=== PATIENT | female | born 1945 | race Caucasian/White ===

== ENCOUNTER 2020-11-20 09:03 | Outpatient (CLI) | payer MEDICARE, OTHER, SELFPAY ==
--- NOTE | ~2020-11-20 | MM_ITS ---
EXAMINATION: MM screening hubert BI w ena HISTORY: Screening mammogram TECHNIQUE: Craniocaudal and mediolateral oblique 3-D tomosynthesis images were obtained and synthetic 2-D images were generated. CAD analysis was submitted and interpreted. COMPARISON: 11/07/2019, 11/05/2018, 11/03/2017 bilateral digital screening mammogram examinations BREAST PARENCHYMAL COMPOSITION: There are scattered areas of fibroglandular density. FINDINGS: Scattered bilateral benign calcifications. There is no evidence of suspicious mass, calcifi cation, or architectural distortion to suggest malignancy in either breast. There has been no suspici ous interval change. IMPRESSION: 1. No mammographic evidence of malignancy. 2. Recommend routine screening mammography in one year. BI-RADS Category 1: Negative Reviewed, dictated and finalized at location A. LATORY AGENCY DIRECTOR
== END 2020-11-20 09:04 | disposition home or self-care (01) ==
PROVIDERS: PCP Internal Medicine; Visit Provider Internal Medicine
DX: Z12.31 Encounter for screening mammogram for malignant neoplasm of breast (principal)
CPT/HCPCS: 77063; 77067

== ENCOUNTER 2021-10-01 09:04 | Outpatient (CLI) | payer MEDICARE, OTHER, SELFPAY ==
--- NOTE | ~2021-10-01 | DEXA_ITS ---
Bone Density Report Name: DIANA CORDOBA Age: 76 Sex: Female Ethnicity: White Date of : 1945 Indication: postmenopausal; height loss; prior fracture; hysterectomy; Referring Provider: WILFRED, CARSON Schilling Study: Bone densitometry was performed. Exam Date: October 01, 2021 Accession number: [id number] Bone Density: Region BMD T-score Z-score Classification AP Spine (L1-L4) 0.957 -0.8 1.5 Normal Femoral Neck (Left) 0.759 -0.8 1.2 Normal Total Hip (Left) 0.867 -0.6 1.1 Normal Total Hip Bilateral Avg 0.885 -0.5 1.3 Normal Femoral Neck (Right) 0.787 -0.6 1.5 Normal Total Hip (Right) 0.901 -0.3 1.4 Normal World Health Organization criteria for BMD impression classify patients as: Normal (T-score at or above -1.0), Osteopenia (T-score between -1.0 and -2.5), or Osteoporosis (T-score at or below -2.5). 10-year Fracture Risk: FRAX not reported because: All T-scores for Spine Total, Hip Total, Femoral Neck at or above -1.0 Previous Exams: Region Exam Age BMD T-score BMD Change BMD Change Date g/cm2 vs Baseline vs Previous AP Spine(L1-L4) 10/01/2021 76 0.957 -0.8 0.012(1.3%) 0.012(1.3%) 11/05/2018 73 0.945 -0.9 Total Hip(Left) 10/01/2021 76 0.867 -0.6 -0.121(-12.2%) -0.121(-12.2%) 11/05/2018 73 0.988 0.4 Total Hip(Right) 10/01/2021 76 0.901 -0.3 -0.077(-7.8%)* -0.077(-7.8%)* 11/05/2018 73 0.978 0.3 *Denotes significance at 95% confidence level, LSC for AP Spine = 0.022 g/cm2, LSC for Total Hip = 0.027 g/cm2 Clinical Information Provided by Patient: Has had a low trauma fracture Has used the following medications: Vitamin D, Calcium Has the following medical conditions: Hysterectomy Patient maximum height was 61.5 Menopause Age: 48 Does not regularly consume dairy products Onset of menses at age 12 Number of children 3 Impression: The patient has normal bone mass. The patient has risk factors, including: previous fracture. The BMD for the Total Hip(Left) decreased, changing by -12.2% since the last DXA exam. The BMD for the Total Hip(Right) decreased, changing by -7.8% since the last DXA exam. Discussion: BONE DENSITY IS ABOVE THE MINIMUM DESIRABLE LEVEL AT ALL SKELETAL SITES TESTED. This patient?s bone mineral density is above the minimum desirable level (T-score -1.0 or better) at all sites measured. The patient should follow a healthful lifestyle (good nutrition with adequate calcium and vitamin D, and appropriate weigh
== END 2021-10-01 09:05 | disposition home or self-care (01) ==
LOC: ANHIMG 09:08
PROVIDERS: PCP Internal Medicine; Visit Provider Internal Medicine
DX: Z78.0 Asymptomatic menopausal state (principal)
CPT/HCPCS: 77080

== ENCOUNTER 2021-12-25 08:28 | Outpatient (CLI) | payer MEDICARE, OTHER, SELFPAY ==
--- NOTE | ~2021-12-25 | MM_ITS ---
EXAMINATION: MM screening hubert BI w ena HISTORY: Screening mammogram, family history of breast cancer in her mother. TECHNIQUE: Craniocaudal and mediolateral oblique 3-D tomosynthesis images were obtained and synthetic 2-D images were generated. CAD analysis was submitted and interpreted. COMPARISON: 11/20/2020, 11/07/2019, 11/05/2018 BREAST PARENCHYMAL COMPOSITION: There are scattered areas of fibroglandular density. FINDINGS: There is no suspicious mass, calcification, or architectural distortion to suggest malignan cy in either breast. There has been no suspicious interval change. IMPRESSION: 1. No mammographic evidence of malignancy. 2. Recommend routine screening mammography in one year. BI-RADS Category 1: Negative Reviewed, dictated and finalized at location A.
== END 2021-12-25 08:29 | disposition home or self-care (01) ==
LOC: ANHIMG 08:29
PROVIDERS: PCP Internal Medicine; Visit Provider Internal Medicine
DX: Z12.31 Encounter for screening mammogram for malignant neoplasm of breast (principal)
CPT/HCPCS: 77063; 77067

== ENCOUNTER 2023-02-24 08:07 | Outpatient (CLI) | payer MEDICARE, OTHER, SELFPAY ==
--- NOTE | ~2023-02-24 | MM_ITS ---
EXAMINATION: MM screening hubert BI w ena HISTORY: Screening mammogram, family history of breast cancer in her mother. TECHNIQUE: Craniocaudal and mediolateral oblique 3-D tomosynthesis images were obtained and synthetic 2-D images were generated. CAD analysis was submitted and interpreted. COMPARISON: 12/25/2021, 11/20/2020, 11/07/2019 BREAST PARENCHYMAL COMPOSITION: There are scattered areas of fibroglandular density. FINDINGS: Chronic, mild right nipple retraction is stable. No suspicious mass, calcification, or arch itectural distortion are identified in either breast to suggest malignancy. There has been no suspici ous interval change. IMPRESSION: 1. No mammographic evidence of malignancy. 2. Recommend routine screening mammography in one year. BI-RADS Category 2: Benign finding(s). Reviewed, dictated and finalized at location A.
== END 2023-02-24 08:08 | disposition home or self-care (01) ==
PROVIDERS: PCP Internal Medicine; Visit Provider Internal Medicine
DX: Z12.31 Encounter for screening mammogram for malignant neoplasm of breast (principal)
CPT/HCPCS: 77063; 77067

== ENCOUNTER 2024-04-05 10:16 | Outpatient (CLI) | payer MEDICARE, OTHER, SELFPAY ==
--- NOTE | ~2024-04-05 | MM_ITS ---
EXAMINATION: MM screening hubert BI w ena HISTORY: Screening mammogram, family history of breast cancer in her mother. TECHNIQUE: Craniocaudal and mediolateral oblique 3-D tomosynthesis images were obtained and synthetic 2-D images were generated. CAD analysis was submitted and interpreted. COMPARISON: 02/24/2023, 12/25/2021, 11/20/2020 BREAST PARENCHYMAL COMPOSITION:Not Dense. There are scattered areas of fibroglandular density. FINDINGS: No suspicious mass, calcification, or architectural distortion are identified in either steff ast to suggest malignancy. There has been no suspicious interval change. IMPRESSION: No mammographic evidence of malignancy. Recommend routine screening mammography in one year. BI-RADS Category 1: Negative Reviewed, dictated and finalized at location .
== END 2024-04-05 10:17 | disposition home or self-care (01) ==
LOC: ANHIMG 10:18
PROVIDERS: PCP Internal Medicine; Visit Provider Internal Medicine
DX: Z12.31 Encounter for screening mammogram for malignant neoplasm of breast (principal)
CPT/HCPCS: 77063; 77067

== ENCOUNTER 2025-04-10 13:12 | Outpatient (CLI) | payer MEDICARE, OTHER, SELFPAY ==
--- NOTE | ~2025-04-10 | MM_ITS ---
EXAMINATION: MM screening [facility] BI w ena HISTORY: Screening mammogram TECHNIQUE: Craniocaudal and mediolateral oblique 3-D tomosynthesis images were obtained and synthetic 2-D images were generated. CAD analysis was submitted and interpreted. COMPARISON: 04/05/2024, 02/24/2023, 12/25/2021 BREAST PARENCHYMAL COMPOSITION:Not Dense. There are scattered areas of fibroglandular density. FINDINGS: No suspicious mass, calcification, or architectural distortion are identified in either steff ast to suggest malignancy. There has been no suspicious interval change. IMPRESSION: No mammographic evidence of malignancy. Recommend routine screening mammography in one year. BI-RADS Category 1: Negative Reviewed, dictated and finalized at location .
--- NOTE | ~2025-04-10 | DEXA_ITS ---
Bone Density Report Name: DIANA CORDOBA Age: 79 Sex: Female Ethnicity: White Date of : 1945 Indication: postmenopausal; screening for osteoporosis; height loss; hysterectomy; Referring Provider: WILFRED, CARSON Schilling Study: Bone densitometry was performed. Exam Date: April 10, 2025 Accession number: [id number] Bone Density: Region BMD T-score Z-score Classification AP Spine(L1-L4) 0.895 -1.4 1.2 Osteopenia Femoral Neck (Left) 0.693 -1.4 0.8 Osteopenia Total Hip (Left) 0.846 -0.8 1.2 Normal Femoral Neck (Right) 0.680 -1.5 0.7 Osteopenia Total Hip (Right) 0.804 -1.1 0.8 Osteopenia Total Hip Mean 0.825 -1.0 1.0 Normal World Health Organization criteria for BMD impression classify patients as: Normal (T-score at or above -1.0), Osteopenia (T-score between -1.0 and -2.5), or Osteoporosis (T-score at or below -2.5). 10-year Fracture Risk(1): Major Osteoporotic Fracture 12% Hip Fracture 2.7% Reported Risk Factors: [place] (), Neck BMD=0.680, BMI=29.5 (1) FRAX(R) Version 3.08. Fracture probability calculated for an untreated patient. Fracture probability may be lower if the patient has received treatment. Previous Exams: Region Exam Age BMD T-score BMD Change BMD Change Date g/cm2 vs Baseline vs Previous AP Spine (L1-L4) 04/10/2025 79 0.895 -1.4 -0.050 (-5.3%) -0.062 (-6.5%) 10/01/2021 76 0.957 -0.8 0.012 (1.3%) 0.012 (1.3%) 11/05/2018 73 0.945 -0.9 Total Hip(Left) 04/10/2025 79 0.846 -0.8 -0.142 (-14.3% -0.021 (-2.4%) 10/01/2021 76 0.867 -0.6 -0.121 (-12.2% -0.121 (-12.2% 11/05/2018 73 0.988 0.4 Total Hip(Right) 04/10/2025 79 0.804 -1.1 -0.175 (-17.8% -0.098 (-10.9% 10/01/2021 76 0.901 -0.3 -0.077 (-7.8%) -0.077 (-7.8%) 11/05/2018 73 0.978 0.3 *Denotes significance at 95% confidence level, LSC for AP Spine = 0.022 g/cm2, LSC for Total Hip = 0.027 g/cm2 Clinical Information Provided by Patient: Has used the following medications: Vitamin D Has the following medical conditions: Hysterectomy Patient maximum height was 61.0 Menopause Age: 48 No regular weight bearing exercise Does not regularly consume dairy products Onset of menses at age 12 Number of children 3 Impression: The patient has low bone mass, based on the Right Femoral Neck T-score. The patient has an estimated ten-year risk of hip fracture of 2.7% and an estimated ten-year risk of major fracture of 12%, based on the WHO FRAX algorithm. The BMD for the AP Spine (L1-L4) decreased, changing by -6.5% since the last DXA exam. The BMD for the Total Hip(Right) decreased, changing by -10.9% since the last DXA exam. Discussion: BONE DENSITY IS LOW AT ONE OR MORE SKELETAL SITES. This patient's lowest T-score is low at one or more skeletal sites. It meets the World Health Organization's (WHO) criteria for ?low bone mass? (T-score between -1.0 and -2.5). The patient's 10-year risk of fracture as calculated by FRAX is less than the threshold where pharmacological therapy is recommended by the National Osteoporosis Foundation (NOF). However, all treatment decisions require clinical judgment and consideration of individual patient factors, including patient preferences, comorbidities, previous drug use, risk factors not captured in the FRAX model (e.g., frailty, falls, vitamin D deficiency, increased bone turnover, interval significant decline in bone density) and possible under or overestimation of fracture risk by FRAX. The patient should follow a healthful lifestyle (good nutrition with adequate calcium and vitamin D, and appropriate weight-bearing exercise). Follow-Up: Consider repeating this study in 2 years to reassess this patient's status, or sooner if there is some new clinical indication. Reported by: JEANNE on 04/10/2025 1:52:00 PM. Reviewed, dictated and finalized at location A.
--- OUTSIDE RECORDS SUMMARY | 2025-04-10 13:37 | XMS_ITS ---
Author Organization [facility] Address [address] [place] [address] Care Team Providers Care Recreational Sports Director Name Role Phone Osvaldo José Unavailable [phone] Encounters Encounter Location Date Provider Diagnosis [facility] [place] [facility] [address] [place] [address] 03/24/2025 José Riley Plan Of Treatment Next Appt Details Provider Name:José Riley , 06/02/2025 01:30:00 PM, [address] [facility] [address], [place], [place], [facility], Progress Notes * ASHLEY CORDOBAOB:1945 (79 yo F)Acc No.[id number]:03/24/2025 Progress Notes Patient: DIANA WALDRON Provider: Desiree MCCRAY MD, Xavier.Regi.C.P, F.A.S.N. :1945 A ge:79 Y S ex:Female Date:03/24/2025 Address:[address] [place] [address] Subjective: * Chief Complaints: * * Medical History: Objective: * Vitals: Assessment: Plan: * Treatment: * Billing Information: * Visit Code: * Procedure Codes: * Electronic signature of Thea iRley MD on 04/10/2025 at 01:36 PM CDT Sign off status: Pending * Provider: Desiree MCCRAY MD, F.Regi.C.P, F.A.S.N. Date: 03/24/2025 Generated for Printing/Faxing/eTransmitting on: 04/10/2025 01:36 PM CDT
--- OUTSIDE RECORDS SUMMARY | 2025-04-10 13:37 | XMS_ITS | Patient Health Record ---
Author Organization [facility] Address [address] [place] [address] Care Team Providers Care Lead Loader Name Role Phone José Riley Unavailable [phone] Reason For Referral No Information Medications Medication SIG (Take, Route, Frequency, Duration) Notes Start Date End Date Status Losartan Potassium 25 MG 1 tablet Orally Once a day; Duration: 90 day(s) 12/09/2021 Active Ergocalciferol 1.25 MG (26386 UT) 1 capsule Orally Once a week; Duration: 90 days 03/31/2025 04/05/2026 Active Paricalcitol 1 MCG 1 capsule Orally fan ly; Duration: 90 days 04/10/2025 04/05/2026 Active Zemplar 1 MCG 1 capsule Orally onc e a day; Duration: 90 day(s) 03/31/2025 12/26/2025 Active Losartan Potassium 25 MG 1 tablet Orally Once a day; Duration: 90 day(s) 05/29/2023 Active Problems Problem Type SNOMED Code ICD Code Onset Dates Problem Status W/U Status Risk Notes Problem Anemia (343029788) Anemia, unspecified (D64.9) Active confirmed Problem Hypothyroidism (51134342) Hypothyroidism, unspecified (E03.9) Active confirmed Problem Secondary hyperparathyroidism (93536844) Secondary hyperparathyroi dism, not elsewhere classified (E21.1) Active confirmed Problem Essential hypertension (98281831) Essential (primary) hypertension (I10) Active confirmed uncontrolled Problem Fatty liver (753379881) Fatty (change of) liver, not elsewhere classified (K76.0) Active confirmed Problem Renal osteodystrophy (83886351) Renal osteodystrophy (N25.0) Active confirmed Problem 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 Problem 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, 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) Active confirmed Problem Proteinuria (68482996) Proteinuria, unspecified (R80.9) Active confirmed Problem Chronic kidney disease stage 3 (disorder) (401930281) Chronic kidney disease, stage 3 unspecified (N18.30) Active confirmed Problem Chronic kidney disease stage 3A (disorder) (461217033) Chronic kidney disease, stage 3a (N18.31) Active confirmed Encounters Encounter Location Date Provider Diagnosis [facility] [address] [place] [address] 06/24/2024 José Riley Chronic kidney disea se, stage 3 unspecified N18.30 ; Fatty (change of) liver, not elsewhere classified K76.0 ; Renal osteodystrophy N25.0 ; Essential (primary) hypertension I10 ; Secondary hyperparathyroidism, not elsewhere classified E21.1 and Cyst of kidney, acquired N28.1 [facility] [address] [place] [address] 08/26/2024 José Riley Chronic kidney disea se, stage 3a N18.31 ; Essential (primary) hypertension I10 ; Renal osteodystrophy N25.0 ; Secondary hyperparathyroidism, not elsewhere classified E21.1 ; Cyst of kidney, acquired N28.1 ; Chronic kidney disease, stage 3 unspecified N18.30 and Fatty (change of) liver, not elsewhere classified K76.0 [facility] [address] [place] [address] 10/21/2024 José Riley Chronic kidney disea se, stage 3a N18.31 ; Renal osteodystrophy N25.0 ; Secondary hyperparathyroidism, not elsewhere classified E21.1 ; Proteinuria, unspecified R80.9 ; 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 and Anemia, unspecified D64.9 [facility] [address] [place] [address] 02/17/2025 José Riley Chronic kidney disea se, stage 3a N18.31 ; Essential (primary) hypertension I10 ; Renal osteodystrophy N25.0 ; Secondary hyperparathyroidism, not elsewhere classified E21.1 ; Cyst of kidney, acquired N28.1 ; Chronic kidney disease, stage 3 unspecified N18.30 ; Fatty (change of) liver, not elsewhere classified K76.0 ; Proteinuria, unspecified R80.9 ; 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 ; Hypothyroidism, unspecified E03.9 ; Anemia, unspecified D64.9 and Abnormal radiologic findings on diagnostic imaging of unspecified kidney R93.429 [facility] [address] [place] [address] 03/31/2025 José Riley Chronic kidney disea se, stage 3a N18.31 ; Essential (primary) hypertension I10 ; Renal osteodystrophy N25.0 ; Secondary hyperparathyroidism, not elsewhere classified E21.1 ; Cyst of kidney, acquired N28.1 ; Fatty (change of) liver, not elsewhere classified K76.0 ; Proteinuria, unspecified R80.9 ; 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 ; Hypothyroidism, unspecified E03.9 and Anemia, unspecified D64.9 [facility] [place] [facility] [address] [place] [address] 10/21/2024 José Riley [facility] [place] [facility] [address] [place] [address] 01/31/2025 José Riley [facility] [place] [facility] [address] [place] [address] 02/17/2025 José Riley [facility] [address] [place] [address] 03/31/2025 José Riley [facility] [address] [place] [address] 03/31/2025 José [facility] [address] [place] [address] 04/10/2025 José Riley Assessments Encounter Date Diagnosis (ICD Code) Assessment Notes Treatment Notes Treatment Clinical Notes Section Notes 06/24/2024 Chronic kidney disease, stage 3 unspecified (ICD-10 - N18.30) 08/26/2024 Chronic kidney disease, stage 3a (ICD-10 - N18.31) 10/21/2024 Chronic kidney disease, stage 3a (ICD-10 - N18.31) 02/17/2025 Essential (primary) hypertension (ICD-10 - I10) uncontrolled 02/17/2025 Chronic kidney disease, stage 3a (ICD-10 - N18.31) 03/31/2025 Essential (primary) hypertension (ICD-10 - I10) uncontrolled 03/31/2025 Chronic kidney disease, stage 3a (ICD-10 - N18.31) 03/31/2025 Renal osteodystrophy (ICD-10 - N25.0) 02/17/2025 Renal osteodystrophy (ICD-10 - N25.0) 10/21/2024 Renal osteodystrophy (ICD-10 - N25.0) 08/26/2024 Essential (primary) hypertension (ICD-10 - I10) uncontrolled 06/24/2024 Fatty (change of) liver, not elsewhere classified (ICD-10 - K76.0) 06/24/2024 Renal osteodystrophy (ICD-10 - N25.0) 10/21/2024 Secondary hyperparathyroidis m, not elsewhere classified (ICD-10 - E21.1) 08/26/2024 Renal osteodystrophy (ICD-10 - N25.0) 02/17/2025 Secondary hyperparathyroidis m, not elsewhere classified (ICD-10 - E21.1) 03/31/2025 Secondary hyperparathyroidis m, not elsewhere classified (ICD-10 - E21.1) 03/31/2025 Cyst of kidney, acquired (ICD-10 - N28.1) 02/17/2025 Cyst of kidney, acquired (ICD-10 - N28.1) 10/21/2024 Proteinuria, unspecified (ICD-10 - R80.9) 06/24/2024 Essential (primary) hypertension (ICD-10 - I10) uncontrolled 08/26/2024 Secondary hyperparathyroidis m, not elsewhere classified (ICD-10 - E21.1) 06/24/2024 Secondary hyperparathyroidis m, not elsewhere classified (ICD-10 - E21.1) 10/21/2024 Nephrogenic diabetes insipidus (ICD-10 - N25.1) 08/26/2024 Cyst of kidney, acquired (ICD-10 - N28.1) 03/31/2025 Fatty (change of) liver, not elsewhere classified (ICD-10 - K76.0) 02/17/2025 Chronic kidney disease, stage 3 unspecified (ICD-10 - N18.30) 02/17/2025 Fatty (change of) liver, not elsewhere classified (ICD-10 - K76.0) 03/31/2025 Proteinuria, unspecified (ICD-10 - R80.9) 08/26/2024 Chronic kidney disease, stage 3 unspecified (ICD-10 - N18.30) 10/21/2024 Anemia, unspecified (ICD-10 - D64.9) 06/24/2024 Cyst of kidney, acquired (ICD-10 - N28.1) 08/26/2024 Fatty (change of) liver, not elsewhere classified (ICD-10 - K76.0) 03/31/2025 Nephrogenic diabetes insipidus (ICD-10 - N25.1) 02/17/2025 Proteinuria, unspecified (ICD-10 - R80.9) 03/31/2025 Hypothyroidism, unspecified (ICD-10 - E03.9) 02/17/2025 Nephrogenic diabetes insipidus (ICD-10 - N25.1) 02/17/2025 Hypothyroidism, unspecified (ICD-10 - E03.9) 03/31/2025 Anemia, unspecified (ICD-10 - D64.9) 02/17/2025 Anemia, unspecified (ICD-10 - D64.9) 02/17/2025 Abnormal radiologic findings on diagnostic imaging of unspecified kidney (ICD-10 - R93.429) Plan Of Treatment Next Appt Details Provider Name:José Riley , 06/02/2025 01:30:00 PM, [address], [facility] [address], [address],
--- OUTSIDE RECORDS SUMMARY | 2025-04-10 13:37 | XMS_ITS | Data Portability ---
Author Organization [place] [facility] [employer] Main Office Address [address] [place] [address] Assessment No assessment recorded. Plan of Treatment Reminders Order Date Submit Date Provider Last Modified By Organization Details Last Modified Time Details Appointments Any 15 2024 08:45A M Chris Mendoza MD Not available Not available Not available Lab T4, free, serum 2023 024 [facility] (Lab), [address] [place], [address], 01/25/2025 12:53:59 TSH, serum or plasma 2023 024 [email or web address] [facility] (Lab), [address] [place], [address], 01/27/2025 15:48:56 T3, free, serum or plasma 2023 024 [facility] (Lab), [address] [place], [address], 01/25/2025 13:45:09 lipid panel, serum 2023 024 [facility] (Lab), [address] [place], [address], 01/25/2025 12:44:41 Referral None recorded. Procedures None recorded. Surgeries None recorded. Imaging None recorded. Medication Orders dicyclomi ne 10 mg capsule 2023 024 [id number] Not available 03/24/2025 22:33:20 methimazo le 10 mg tablet 2023 024 [email or web address] [facility] [address], [place], [address], 02/01/2025 09:02:31 losartan 25 mg tablet 2023 024 [id number] [facility] [address], [place], [address], 02/01/2025 01:21:42 amlodipin e 10 mg tablet 2023 024 [id number] 49 [facility] [address], [place], [address], 02/01/2025 01:21:41 atorvasta tin 10 mg tablet 2023 024 [id number] 49 [facility] [address], [place], [address], 02/01/2025 01:21:42 escitalop fer 10 mg tablet 2023 024 [id number] 49 [facility] [address], [place], [address], 02/01/2025 01:21:42 Patient TargetsNo targets recorded. Patient Instructions Encounter Date Encounter Id Patient Instructions Last Modified By Organization Details Last Modified Time 02/18/2024 [id number] dementia rating scale-2* Not available 02/18/2024 13:02:14 alcohol misuse* Not available 02/18/2024 13:02:14 depression screening* Not available 02/18/2024 13:02:14 multi-dimensiona l health assessment questionnaire* [email or web address] Not available 02/18/2024 10:51:43 Personalized Hea lt Plan and Screening Recommendations Advance Directives - Do you have one? No Advance Directives - Do we have your advance directive on file in your health record? Primary Prevention/Interven tion (prevents or decreases the chance of common diseases from occurring) Smoking Risk: Non Smoker Alcohol Misuse Screening: Negative Weight: Overweight try to lose 10% of your body weight Physical activity: Need more exercise/physical activity Nutrition: Average Eat heart healthy diet Fall Risk (screened today): Low Vaccines Pneumococcal: Influenza: Recommended today, but you have declined Chronic Disease Risks Stroke: Intermediate Risk Active diagnosis, Continue current treatment plan Heart Attack: Intermediate Risk Active diagnosis, Continue current treatment plan Clogging of the Arteries: Intermediate Risk Active diagnosis, Continue current treatment plan Diabetes: Low Risk I have no recommendations Secondary Prevention/Interven tion (detects treatable diseases before they may cause symptoms, disability, or ) Breast Cancer Screening with mammogram: Recommended today Cervical/Uterine/Ov velia Cancer Screening: No screening necessary Osteoporosis Screening: Recommended today Date Screening Last Performed: Colon Cancer Screening: Colonoscopy due 2025 Date Screening Last Performed: _2020 Eye Disease Screening: Your next exam in: goes yearly Dementia Risk: Low I have no recommendations Depression Screening: Negative Active diagnosis, Continue current treatment plan [email or web address] Not available 02/18/2024 10:54:52 Reason for Referral None Reported. Results Created Date Observation Date Name Description Value Unit Range Abnormal Flag Note LastModifiedBy Organization Detail LastModifiedTime 10/16/19 24 10/16/2023 CBC W/O DIFFE RENTI AL white blood cells 6.3 x10'3 /uL 4.2-10 .8 Not Available [facility] (Lab) [address] [place], [address], 10/16/2023 20:33:23 10/16/19 24 10/16/2023 CBC W/O DIFFE RENTI AL red blood cells 4.88 x10'6 /uL 3.80-5 .20 Not Available [facility] (Lab) [address] [place], [address], 10/16/2023 20:33:23 10/16/19 24 10/16/2023 CBC W/O DIFFE RENTI AL hemoglobin 14.6 g/dL 12.0-1 5.6 Not Available [facility] (Lab) [address] [place], [address], 10/16/2023 20:33:23 10/16/19 24 10/16/2023 CBC W/O DIFFE RENTI AL hematocrit 45.0 % 35.7-4 5.7 Not Available [facility] (Lab) [address] [facility] [place], [address], 10/16/2023 20:33:23 10/16/19 24 10/16/2023 CBC W/O DIFFE RENTI AL mean red cell volume 92.2 fL 82.0-9 9.0 Not Available [facility] (Lab) [address] [place], [address], 10/16/2023 20:33:23 10/16/19 24 10/16/2023 CBC W/O DIFFE RENTI AL mean red cell hemoglobin 29.9 pg 27.0-3 3.0 Not Available [facility] (Lab) [address] [place], [address], 10/16/2023 20:33:23 10/16/19 24 10/16/2023 CBC W/O DIFFE RENTI AL mean RBC HGB concentratio n 32.4 g/dL 31.0-3 6.0 Not Available [facility] (Lab) [address] [place], [address], 10/16/2023 20:33:23 10/16/19 24 10/16/2023 CBC W/O DIFFE RENTI AL red cell distribution width 15.1 % 11.8-1 5.5 Not Available [facility] (Lab) [address] [place], [address], 10/16/2023 20:33:23 10/16/19 24 10/16/2023 CBC W/O DIFFE RENTI AL platelets 253 x10'3 /uL 150-40 0 Not Available [facility] (Lab) [address] [place], [address], 10/16/2023 20:33:23 10/16/19 24 10/16/2023 CBC W/O DIFFE SHAR AL mean platelet volume 11.0 fL 9.0-12 .4 Not Available [facility] (Lab) [address] [place], [address], 10/16/2023 20:33:23 10/16/19 24 10/16/2023 LIPID PANEL cholesterol 190 mg/dL 140-19 9 NIH ALEXANDER NSUS RECOM MENDA TION FOR GEMINI STERO L: ADULT CHILD LOW RISK: <200 <170 BORDE RLINE : <200- 239 ----- HIGH RISK: >240 >200 Not Available [facility] (Lab) [address] [place], [address], 10/16/2023 20:36:50 10/16/19 24 10/16/2023 LIPID PANEL triglyceride s 93 mg/dL 0-150 NIH ALEXANDER NSUS REPOR T RECOM MENDA TION FOR TRIGL YCERI BALDOMERO: ADULT CHILD LOW RISK: <150 ----- BODER LINE: 150-1 99 ----- HIGH RISK: >200 ----- Not Available [facility] (Lab) [address] [place], [address], 10/16/2023 20:36:50 10/16/19 24 10/16/2023 LIPID PANEL HDL cholesterol 74 mg/dL 40- Not Available [facility] (Lab) [address] [place], [address], 10/16/2023 20:36:50 10/16/19 24 10/16/2023 LIPID PANEL LDL cholesterol, calculated 97 mg/dL 0-130 NIH ALEXANDER NSUS REPOR T RECOM MENDA TIONS FOR LDL: ADULT CHILD LOW RISK <130 <110 (OPTI MAL LDL) <100 ----- BORDE RLINE : 130-1 59 ----- HIGH RISK: >160 >130 A TRIGL YCERI DE RESUL T >400 INVAL IDATE S THE CALCU LATIO N FOR LDL FRACT IONAT ION - THE LDL RESUL T WILL NOT BE REPOR BLANCHE. Not Available [facility] (Lab) [address] [place], [address], 10/16/2023 20:36:50 10/16/19 24 10/16/2023 COMPR EHENS JAYNA METAB OLIC PANEL sodium 140 mmol/ L 137-14 5 Not Available [facility] (Lab) [address] [place], [address], 10/16/2023 20:36:56 10/16/19 24 10/16/2023 COMPR EHENS JAYNA METAB OLIC PANEL potassium 4.9 mmol/ L 3.5-5. 1 Not Available [facility] (Lab) [address] [place], [address], 10/16/2023 20:36:56 10/16/19 24 10/16/2023 COMPR EHENS JAYNA METAB OLIC PANEL chloride 109 mmol/ L 98-107 high Not Available [facility] (Lab) [address] [place], [address], 10/16/2023 20:36:56 10/16/19 24 10/16/2023 COMPR EHENS JAYNA METAB OLIC PANEL carbon dioxide 24 mmol/ L 22-30 Not Available [facility] (Lab) [address] [place], [address], 10/16/2023 20:36:56 10/16/19 24 10/16/2023 COMPR EHENS JAYNA METAB OLIC PANEL anion gap 11.9 mmol/ L 14-22 low Not Available [facility] (Lab) [address] [place], [address], 10/16/2023 20:36:56 10/16/19 24 10/16/2023 COMPR EHENS JAYNA METAB OLIC PANEL glucose 77 mg/dL 70-99 Not Available [facility] (Lab) [address] [place], [address], 10/16/2023 20:36:56 10/16/19 24 10/16/2023 COMPR EHENS JAYNA METAB OLIC PANEL BUN 16 mg/dL 8-19 Not Available [facility] (Lab) [address] [place], [address], 10/16/2023 20:36:56 10/16/19 24 10/16/2023 COMPR EHENS JAYNA METAB OLIC PANEL creatinine 1.18 mg/dL 0.66-1 .25 Not Available [facility] (Lab) [address] [place], [address], 10/16/2023 20:36:56 10/16/19 24 10/16/2023 COMPR EHENS JAYNA METAB OLIC PANEL GFR 45 Refer ence Range : [place] ge GFR Healt hy Adult : >60 mL/mi n/1.7 3 m2 Chron ic Kidne y Disea se: 15-60 mL/mi n/1.7 3 m2 Kidne y Failu re: <15/m L/min /1.73 m2 www.n iddk. nih.g ov The MDRD study equat ion has not been valid ated in child wilmar <18 years of age; pregn ant women ; the elder ly >85 years of age; or in some racia l or ethni c subgr oups, such as [facility] nics. Outsi de the valid ated zachary eters , estim ated GFR is less accur ate, requi ring clini stephen judgm ent on a case- by-ca se basis . Clini stephen inter preta tion for other races and ages must be made by the clini cale. The MDRD study equat ion has not been valid ated for the evalu ation of serum creat inine relat ed to nutri gabriel l statu s or medic ation usage . For perso ns <18 years of age, a pedia tric GFR calcu lator is avail able on the [facility] websi te: https ://ki caban.jhony arredondo.o rg/pr ofess ional s/kdo qi/gf r_cal culat or Not Available [facility] (Lab) [address] [place], [address], 10/16/2023 20:36:56 10/16/19 24 10/16/2023 COMPR EHENS JAYNA METAB OLIC PANEL alkaline phosphatase 102 U/L 38-126 Not Available [facility] (Lab) [address] [place], [address], 10/16/2023 20:36:56 10/16/19 24 10/16/2023 COMPR EHENS JAYNA METAB OLIC PANEL alanine aminotransfe rase 28 U/L 0-35 Not Available [facility] (Lab) [address] [place], [address], 10/16/2023 20:36:56 10/16/19 24 10/16/2023 COMPR EHENS JAYNA METAB OLIC PANEL aspartate aminotransfe rase 35 U/L 15-37 Not Available [facility] (Lab) [address] [place], [address], 10/16/2023 20:36:56 10/16/19 24 10/16/2023 COMPR EHENS JAYNA METAB OLIC PANEL bilirubin, total 0.70 mg/dL 0.20-1 .30 Not Available [facility] (Lab) [address] [place], [address], 10/16/2023 20:36:56 10/16/19 24 10/16/2023 COMPR EHENS JAYNA METAB OLIC PANEL calcium 9.8 mg/dL 8.4-10 .2 Not Available [facility] (Lab) [address] [place], [address], 10/16/2023 20:36:56 10/16/19 24 10/16/2023 COMPR EHENS JAYNA METAB OLIC PANEL total protein 7.2 g/dL 6.3-8. 2 Not Available [facility] (Lab) [address] [place], [address], 10/16/2023 20:36:56 10/16/19 24 10/16/2023 COMPR EHENS JAYNA METAB OLIC PANEL albumin 4.1 g/dL 3.0-4. 4 Not Available [facility] (Lab) [address] [facility] [place], [address], 10/16/2023 20:36:56 10/16/19 24 10/16/2023 COMPR EHENS JAYNA METAB OLIC PANEL globulin 3.1 g/dL 2.6-4. 2 Not Available [facility] (Lab) [address] [place], [address], 10/16/2023 20:36:56 10/16/19 24 10/16/2023 COMPR EHENS JAYNA METAB OLIC PANEL A/G ratio 1.3 ratio 1.0-2. 0 Not Available [facility] (Lab) [address] [place], [address], 10/16/2023 20:36:56 10/16/19 24 10/16/2023 T3 FREE free T3 4.0 pg/mL 2.77-5 .27 Not Available [facility] (Lab) [address] [place], [address], 10/16/2023 21:08:54 10/16/19 24 10/16/2023 T4 FREE free T4 0.60 NG/dL 0.78-2 .19 low Not Available [facility] (Lab) [address] [place], [address], 10/16/2023 21:08:59 10/16/19 24 10/16/2023 TSH thyroid-stim ulating hormone 1.220 uIU/m L 0.465- 4.680 Not Available [facility] (Lab) [address] [place], [address], 10/16/2023 21:16:51 07/13/20 24 07/13/2024 T4 FREE free T4 1.84 NG/dL 0.78-2 .19 Not Available [facility] (Lab) [address] [place], [address], 07/13/2024 20:56:15 07/13/20 24 07/13/2024 T3 TOTAL T3, total 1.710 NG/mL 0.970- 1.690 high Not Available [facility] (Lab) [address] [place], [address], 07/13/2024 21:22:30 01/26/2001/25/2025 LIPID PANEL cholesterol 195 mg/dL 140-19 9 NIH ALEXANDER NSUS RECOM MENDA TION FOR GEMINI STERO L: ADULT CHILD LOW RISK: <200 <170 BORDE RLINE : <200- 239 ----- HIGH RISK: >240 >200 Not Available [facility] (Lab) [address] [place], [address], 01/25/2025 12:44:41 01/26/20 25 01/25/2025 LIPID PANEL triglyceride s 101 mg/dL 0-150 NIH ALEXANDER NSUS REPOR T RECOM MENDA TION FOR TRIGL YCERI BALDOMERO: ADULT CHILD LOW RISK: <150 ----- BODER LINE: 150-1 99 ----- HIGH RISK: >200 ----- Not Available [facility] (Lab) [address] [place], [address], 01/25/2025 12:44:41 01/26/20 25 01/25/2025 LIPID PANEL HDL cholesterol 69 mg/dL 40- Not Available [facility] (Lab) [address] [place], [address], 01/25/2025 12:44:41 01/26/20 25 01/25/2025 LIPID PANEL LDL cholesterol, calculated 106 mg/dL 0-130 NIH ALEXANDER NSUS REPOR T RECOM MENDA TIONS FOR LDL: ADULT CHILD LOW RISK <130 <110 (OPTI MAL LDL) <100 ----- BORDE RLINE : 130-1 59 ----- HIGH RISK: >160 >130 A TRIGL YCERI DE RESUL T >400 INVAL IDATE S THE CALCU LATIO N FOR LDL FRACT IONAT ION - THE LDL RESUL T WILL NOT BE REPOR BLANCHE. Not Available [facility] (Lab) [address] [place], [address], 01/25/2025 12:44:41 01/26/20 25 01/25/2025 T4 FREE free T4 1.00 NG/dL 0.78-2 .19 Not Available [facility] (Lab) [address] [place], [address], 01/25/2025 12:53:59 01/26/20 25 01/25/2025 T3 FREE free T3 3.0 pg/mL 2.77-5 .27 Not Available [facility] (Lab) [address] [place], [address], 01/25/2025 13:45:09 06/23/20 24 04/05/2024 MAMMO , scree sam, digit al, bilat eral No observ ation record ed. Not Available 2023 11:59:43 06/23/20 24 10/01/2021 bone densi ty No observ ation record ed. Not Available 2023 11:59:43 Result Notes None recorded. Problems Name Problem SNOMED Code Status Onset Date Resolution Date Notes Provider Name and Address Organization Details Recorded Time Renewal of prescript ion Completed 202107/15/2022 Not Available [facility] 3 22:40:49 Irritable bowel syndrome 60301017 Active 2018 Not Available [facility] 4 04:24:17 Sciatica 35715243 Completed Not Available [facility] 3 22:40:49 Gastroeso phageal reflux disease 448140175 Active 2018 Not Available [facility] 4 04:24:18 Adult health examinati on Active 2020 Not Available [facility] 4 04:24:18 Screening for disorder Completed 202107/15/2022 Not Available [facility] 3 22:40:50 Pain of left wrist 10450024685 9102 Completed 202104/21/2023 GUERITA Rincon null, [facility] [employer] [facility] 3 15:21:55 Pain of right hip joint 48670781872 9102 Completed 202104/21/2023 GUERITA Rincon null, [facility] [employer] [facility] 3 15:21:57 Depressiv e disorder 56652085 Active 2020 Not Available [facility] 4 04:24:18 Anxiety 88078173 Completed 201709/20/2018 Not Available [facility] 3 22:40:50 Upper respirato ry infection 72703254 Completed 201707/09/2020 Not Available [facility] 3 22:40:50 Hyperlipi demia 27177123 Active Not Available [facility] 4 04:24:18 Essential hypertens ion 52769514 Active Not Available [facility] 4 04:24:18 Unsteady when walking 51064413 Active 2022 Not Available [facility] 4 04:24:18 Abnormal weight loss 695935892 Active 2022 Not Available [facility] 4 04:24:18 Hyperthyr oidism 94947529 Active 2022 Not Available [facility] 4 04:24:18 Steatotic liver disease 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 Procedures Surgical History Date Name Laterality Status Provider Name and Address Organization Details Recorded Time 02/18/20 24 Medicare Wellness CPT Code, subsequent completed Lucita Diallo RN [facility] 02/18/2024 10:41:05 10/01/20 21 Most Recent Bone Density completed Not Available [facility] 12/10/2022 22:40:22 03/04/20 21 Date of Last Colonoscopy completed Not Available [facility] 12/10/2022 22:40:22 Hysterectomy completed Not Available [facility] 12/10/2022 22:40:23 Cataract Surgery completed Not Available [facility] 12/10/2022 22:40:23 Imaging Results None recorded. Procedure Notes None recorded. Medical Equipment None Reported. Allergies Allergen ID Allergen Name Allergen Category Reaction Reaction Severity Criticality Documentation Date Start Date Code Code System Note Provider Name and Address Organization Details Recorded Time 25984 lisinopri l medicatio n cough Not available Not available 12/10/2022 88989 RxNorm Not Available [facility] 3 22:41:42 72543 calcitrio l medicatio n other Not available Not available 12/10/2022 1894 RxNorm low BP, stoma ch cramp ed Not Available [facility] 3 22:41:42 77322 aspirin medicatio n Not available Not available Not available 12/10/2022 1191 RxNorm Not Available [facility] 3 22:41:43 Medications Name Sig Start Date Stop Date Status Note LastModified by Organization Details LastModified Time losartan 50 mg tablet active Not Available Not Available Not Available cyclobenz aprine 10 mg tablet Take 1 tablet every 8 hours by oral route for 7 days. active Not Available Not Available No t Available bupropion HCl SR 150 mg tablet,12 hr sustained -release TK 1 T PO BID 10/19 completed weaning off this med Not Available Not Available Not Available carvedilo l 6.25 mg tablet Take 0.5 tablets twice a day by oral route for 90 days. 09/21 completed Not Available Not Available Not Available atorvasta tin 20 mg tablet active Not Available Not Available Not Available carvedilo l 12.5 mg tablet TK 1 T PO BID WF active Not Available Not Available No t Available Vitamin C 500 mg tablet 1 daily 2013 active Not Available Not Available Not Avai lable atorvasta tin 10 mg tablet Take 1 tablet every day by oral route. 2024 active Not Available Not Available Not Avai lable azithromy lakeisha 250 mg tablet TAKE 2 TABLETS (500 MG) BY ORAL ROUTE ONCE DAILY FOR 1 DAY THEN 1 TABLET (250 MG) BY ORAL ROUTE ONCE DAILY FOR 4 DAYS 01/01 completed Not Available Not Available Not Available lysine 1,000 mg tablet Take 1 tablet every day by oral route. 2020 active Not Available Not Available Not Avai lable amlodipin e 5 mg tablet TK 1 T PO QD 02/14 completed Not Available Not Available Not Available peg-elect rolyte solution 420 gram oral solution MIX AND DRINK STARTING AT 5PM NIGHT BEFORE PROCEDUR E. DRINK 8 OUNCES EVERY 15 MINUTES UNTIL ALL TAKEN 03/05 completed Not Available Not Available Not Available carvedilo l 3.125 mg tablet TK 1 T PO WF BID. 01/06 completed Not Available Not Available Not Available alprazola m 0.25 mg tablet Take 1 tablet(s ) every day by oral route as needed. 10/19 completed Not Available Not Available Not Available amlodipin e 10 mg tablet TAKE 1 TABLET BY MOUTH EVERY DAY active Not Available Not Available No t Available losartan 25 mg tablet TAKE 1 TABLET BY MOUTH EVERY DAY active Not Available Not Available No t Available methimazo le 5 mg tablet Take 1 tablet every day by oral route. 07/17 completed Not Available Not Available Not Available omeprazol e 20 mg capsule,d elayed release Take 1 capsule every day by oral route. active Not Available Not Available No t Available lisinopri l 5 mg tablet TK 1 T PO QD 09/20 completed possible cough Not Available Not Available Not Available methimazo le 10 mg tablet Take 1 tablet every day by oral route. 2024 active Not Available Not Available Not Avai lable fluticaso ne propionat e 50 mcg/actua tion nasal spray,sudh[facility] [place] 2 sprays every day by intranas al route as needed. 02/17 completed Not Available Not Available Not Available dicyclomi ne 10 mg capsule Take 1 capsule 2 times a day by oral route. 2024 active ISIAH 06/22/24 NOV 09/14/24 ok to rf Not Available Not Available Not Available Vitamin D 50,000 unit capsule Take 1 capsule every month by oral route. 2020 active Not Available Not Available Not Avai lable escitalop fer 10 mg tablet Take 1 tablet every day by oral route. 2024 active Not Available Not Available Not Avai lable paricalci mark 1 mcg capsule Take 1 capsule every day by oral route. 02/17 completed Not Available Not Available Not Available L-Lysine 1 daily 09/21 completed Not Available Not Available Not Available vitamin B complex 06/22 completed Not Available Not Available Not Available niacin 06/03 completed Not Available Not Available Not Available multivita min 1 PO QD 2020 active Not Available Not Available Not Avai lable Super B-50 Complex 1 daily 2013 active Not Available Not Available Not Avai lable Super B Complex-V itamin C 09/20 completed Not Available Not Available Not Available Calcium 600 + D(3) 600 mg-10 mcg (400 unit) tablet Take 1 tablet every day by oral route. 04/22 completed Not Available Not Available Not Available krill oil 10/17 completed Not Available Not Available Not Available niacin (inositol niacinate ) 500 mg tablet 1 daily 09/21 completed Not Available Not Available Not Available turmeric root extract 500 mg capsule Take 1 capsule every day by oral route. 2014 active Not Available Not Available Not Avai lable Sutab 1.479-0.1 88-0.225 gram tablet DIRECTED 03/05 completed Not Available Not Available Not Available Vitals Date Recorded Body height Body mass index (BMI) Body weight Body temperature Heart rate Oxygen saturation Oxygen saturation in Arterial blood by Pulse oximetry Systolic blood pressure Diastolic blood pressure Provider Name and Address Organization Details Last Updated DateTime 4 152.4 cm 28.3 kg/m2 15588.8 9 g 97.2 [degF] 66 /min 98 % 98 % 108 mm[Hg] 62 mm[Hg] Kiko Meeks CMA [facility] [employer] 4 09:44:18 Date Recorded Body height Body mass index (BMI) Body weight Body temperature Heart rate Oxygen saturation Oxygen saturation in Arterial blood by Pulse oximetry Systolic blood pressure Diastolic blood pressure Provider Name and Address Organization Details Last Updated DateTime 5 152.4 cm 28.5 kg/m2 88550.4 9 g 97.7 [degF] 69 /min 98 % 98 % 116 mm[Hg] 60 mm[Hg] GUERITA Wynn [facility] 5 09:00:27 Date Recorded Body height Body mass index (BMI) Body weight Body temperature Heart rate Oxygen saturation Oxygen saturation in Arterial blood by Pulse oximetry Systolic blood pressure Diastolic blood pressure Provider Name and Address Organization Details Last Updated DateTime 4 152.4 cm 28.3 kg/m2 92636.8 9 g 97.9 [degF] 68 /min 84 % 84 % 110 mm[Hg] 62 mm[Hg] GUERITA Monet [facility] [employer] [facility] 4 10:17:03 Date Recorded Body height Body mass index (BMI) Body weight Body temperature Heart rate Oxygen saturation Oxygen saturation in Arterial blood by Pulse oximetry Systolic blood pressure Diastolic blood pressure Provider Name and Address Organization Details Last Updated DateTime 4 152.4 cm 27.5 kg/m2 81438.1 6 g 98.4 [degF] 66 /min 97 % 97 % 112 mm[Hg] 68 mm[Hg] Patti Ornelas [facility] [employer] [facility] 4 11:08:51 Date Recorded Body height Body mass index (BMI) Body weight Heart rate Oxygen saturation Oxygen saturation in Arterial blood by Pulse oximetry Systolic blood pressure Diastolic blood pressure Provider Name and Address Organization Details Last Updated DateTime 4 152.4 cm 29.1 kg/m2 34645.2 6 g 63 /min 97 % 97 % 130 mm[Hg] 74 mm[Hg] Krystal Landeros an, RMA [place] - [facility] 11:37:42 Social History Question Answer Notes LastModified by Organizat ion Details LastModified Time Tobacco Smoking Status Never Smoker Michelle goins, [place] - [facility] 10/21/2023 09:35:06 Do You Have An Advance Directive? No [id number] Information not available 12/10/2022 Are You Blind Or Do You Have Difficulty Seeing? No Information not available 10/21/2023 What Is Your Level Of Caffeine Consumption? Occasional [id number] Information not available 12/10/2022 How Much Tobacco Do You Chew? None [id number] Information not available 12/10/2022 Are You Deaf Or Do You Have Serious Difficulty Hearing? No Information not available 10/21/2023 What Type Of Diet Are You Following? REGULAR [id number] Information not available 12/10/2022 Which Illicit Or Recreational Drugs Have You Used? None Information not available 10/21/2023 Have There Been Any Changes To Your Family Or Social Situation? No Information not available 10/21/2023 What Is The Fluoride Status Of Your Home? Unknown [email or web address] Information not available 02/18/2024 Are There Any Guns Present In Your Home? No Information not available 10/21/2023 Do You Use Insect Repellent Routinely? No Information not available 10/21/2023 Where Do You Live? SingleLevelHouse Information not available 10/21/2023 Guns Present In The Home? No [email or web address] Information not available 02/18/2024 Are You Able To Care For Yourself? Yes [email or web address] Information not available 02/18/2024 Are You Blind Or Do Yo Have Difficulty Seeing? No [email or web address] Information not available 02/18/2024 Are You Deaf Or Do You Have Serious Difficulty Hearing? No [email or web address] Information not available 02/18/2024 Live Alone Of With Others? Alone [email or web address] Information not available 02/18/2024 Do You Have A Medical Power Of Director Of Manufacturing? No Information not available 10/21/2023 What Was The Date Of Your Most Recent Tobacco Screening? 02/18/2024 [email or web address] Information not available 02/18/2024 Do You Have Any Pets? No [email or web address] Information not available 02/18/2024 What Is Your Relationship Status? [id number] Information not available 12/10/2022 Do You Use Your Seat Belt Or Car Seat Routinely? Yes [email or web address] Information not available 02/18/2024 Do You Have Smoke And Carbon Monoxide Detectors In Your Home? Yes Information not available 10/21/2023 Are You Passively Exposed To Smoke? No Information not available 10/21/2023 Are There Any Smokers In Your House? No Information not available 10/21/2023 How Much Tobacco Do You Smoke? No [id number] Information not available 12/10/2022 Do You Use Sunscreen Routinely? Yes Information not available 10/21/2023 Do You Have Difficulty Walking Or Climbing Stairs? No Information not available 10/21/2023 Sex: Unknown Functional Status Question Answer Note LastModified by Organization Details LastModified Time What is your level of alcohol consumption? None [id number] Information not available 12/10/2022 Do you or have you ever used smokeless tobacco? Never used smokeless tobacco [id number] Information not available 12/10/2022 Do you have transportation difficulties? No Information not available 10/21/2023 Are you able to walk? YESWOREST Information not available 10/21/2023 Do you have difficulty doing errands alone? No Information not available 10/21/2023 Are you able to care for yourself? 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 No Information not available 10/21/2023 Do you or have you ever used e-cigarettes or vape? Never used electronic cigarettes Information not available 10/21/2023 What is your exercise level? Occasional 1 mile walk everyday [id number] Information not available 12/10/2022 Mental Status Question Answer Note LastModified by Organization D etails LastModified Time Do you have difficulty concentrating, remembering or making decisions? No Information no t available 10/21/2023 Family History Relationship Description Onset Age of this Age Resolved Age Notes LastModified by Organization Details LastModified Time Mother Malignant tumor of breast [id number] Not available 12/10/2022 22:40:23 Medical History Condition Response KIDNEY DISEASE ANXIETY DISORDER Y BOWEL PROBLEMS Y DEPRESSION (INCLUDING POST ) Y HYPERTENSION Y HIGH CHOLESTEROL / HYPERLIPIDEMIA Y Gynecological History Statement/Question Response Date of Last Mammogram 12/25/2021 Date of Last Colonoscopy 03/04/2021 Most Recent Bone Density 10/01/2021 Obstetrics History GPAL:G 0 P 0 0 0 0 Immunizations Vaccine Type Date Status Note Provider Nam e and Address Organization Details Recorded Time SARS-COV-2 (COVID-19) vaccine, UNSPECIFIED 1 completed Not Available [facility] 10/23/2023 04:24:19 SARS-COV-2 (COVID-19) vaccine, UNSPECIFIED completed Not Available [facility] 10/23/2023 04:24:19 Past Encounters Encounter ID Performer Location Encounter Start Date Encounter Closed Date Diagnosis/Indication Diagnosis SNOMED-CT Code Diagnosis ICD10 Code Diagnosis Note [id number] _ATHN_MIGR ATION_1 _ATHENA_M IGRATION_ DEFAULT_1 _1 , 01/30/2021 00:00:00 01/30/2021 10:51:46 [id number] Chris Mendoza MD Jerilyn[facility] [address] [address] 03/12/2021 00:00:00 03/12/2021 10:16:40 [id number] MD GRADY Roberts_[facility] [address] [address] 07/15/2021 00:00:00 07/15/2021 12:57:25 [id number] MD GRADY Roberts[facility] [address] [place] [address] 11/15/2021 00:00:00 11/15/2021 09:39:19 [id number] Chris Mendoza MD [facility] Internal [address] [facility] [place] [address] 03/14/2022 00:00:00 03/14/2022 09:53:47 [id number] Chris Mendoza MD [facility] Internal [address] [place] [address] 07/15/2022 00:00:00 07/15/2022 10:14:41 [id number] Chris Mendoza MD [address] [address] 11/18/2022 00:00:00 11/18/2022 13:51:25 [id number] Chris Mendoza MD [address] [address] 03/18/2023 09:36:16 03/18/2023 10:14:18 Essential hypertension 21163760 I10 under control Hyperlipidemia 07877873 E78.5 labs Irritable bowel syndrome 65371777 K58.9 she takes it only bid Gastroesop hageal reflux disease 716880625 K21.9 otc Depressive disorder 3548 9007 F32.9 under control Adult [facility] th examination 300387445 Z00.00 colonoscop y-03/04/20 21mammogra m- 2dex a - 10/01pneum onia vaccs- NEVER, does not wantFLU- Does not takeCOVID- 12/05/2020 , 01/02/2021 Chronic renal failure 90 741474 N18.9 stable GFR 34 [id number] Chris Mendoza MD [facility] Internal [address] [place] [address] 04/21/2023 15:13:50 04/21/2023 15:54:55 Unsteady when walking 36205372 R26.89 Abnormal weight loss 267 451327 R63.4 does not have good appetite [id number] Chris Mendoza MD [facility] Internal [facility] [address] [facility] [place] [address] 06/03/2023 10:25:06 06/03/2023 11:23:17 Hyperthyroidism 23524022 E05.90 on meds, labs in a month Steatotic liver disease 605668146 K76.0 diet discussed, keep doing the physical activities and exercises Kidney disease 76718582 N08 improving [id number] Chris Mendoza MD [facility] Internal [facility] [address] [facility] [place] [address] 07/17/2023 09:10:44 07/17/2023 09:58:11 Essential hypertension 68787766 I10 under control Hyperlipidemia 54930387 E78.5 labs good Irritable bowel syndrome 17819650 K58.9 she takes it only bid Gastroesop hageal reflux disease 087440603 K21.9 otc Depressive disorder 3548 9007 F32.9 under control Adult heal th examination 854173280 Z00.00 Colonoscop y-03/04/20 21Mammogra m- 02/24/2023 Dexa - 10/01Pneum onia vaccs- NEVER, does not wantFLU- Does not takeCOVID- 12/05/2020 , 01/02/2021 Abnormal weight loss 267 444222 R63.4 DUE TO Hyperthroi dism, has stabilized Hyperthyroidism 92813200 E05.90 on meds, labs next time Kidney disease 47298349 N08 improving Steatotic liver disease 783054131 K76.0 on low fat diet Unsteady when walking 22 273999 R26.89 has made significan t improvemen t with therapy [id number] Chris Mendoza MD [facility] Med [facility] [address] [facility] [place] [address] 10/21/2023 09:34:51 10/21/2023 10:26:44 Hyperthyroidism 69137686 E05.90 LABS MUCH BETTER Steatotic liver disease 840653171 K76.0 diet discussed, keep doing the physical activities and exercises, LABS have improved Kidney disease 43755972 N08 stable GFR Adult heal th examination 692783679 Z00.00 Z13.220 Colonoscop y-03/04/20 21Mammogra m- 02/24/2023 Dexa - /21Pneum onia vaccs- NEVER, does not wantFLU- Does not takeCOVID- 12/05/2020 , 01/02/2021 , 2022 Essential hypertension 10782131 I10 under control Hyperlipidemia 45350889 E78.5 labs good Irritable bowel syndrome 59337643 K58.9 she takes it only bid Gastroesop hageal reflux disease 923905903 K21.9 otc Depressive disorder 3548 9007 F32.9 under control Unsteady when walking 22 479459 R26.89 has made significan t improvemen t with therapy [id number] Chris Mendoza MD [facility] Internal [address] [place] [address] 02/18/2024 10:08:59 02/18/2024 10:49:55 Hyperthyroidism 83000306 E05.90 watch TSH Steatotic liver disease 733867241 K76.0 improved Kidney disease 45222733 N08 GFR 41 Adult [facility] th examination 418378298 Z00.00 Z13.220 Colonoscop y-03/04/20 21Mammogra m- 02/24/2023 Dexa - /21Pneum onia vaccs- NEVER, does not wantFLU- Does not takeCOVID- 12/05/2020 , 01/02/2021 , 2022 Essential hypertension 83327115 I10 under control Hyperlipidemia 44524914 E78.5 labs good Irritable bowel syndrome 87094801 K58.9 meds help Gastroesop hageal reflux disease 327577297 K21.9 otc Depressive disorder 3548 9007 F32.9 under control Unsteady when walking 22 380396 R26.89 has made significan t improvemen t with therapy Screening for disorder 303745276 Z13.9 [id number] Chris Mendoza MD [facility] Internal Med [address] [place] [facility] [place] [address] 06/22/2024 10:33:37 06/22/2024 12:02:55 Hyperthyroidism 20208833 E05.90 review labs and adjust dose if needed Steatotic liver disease 486258957 K76.0 improved Kidney disease 44980334 N08 GFR 41 Essential hypertension 59584313 I10 under control Hyperlipidemia 46414740 E78.5 under control Irritable bowel syndrome 73530832 K58.9 meds help Gastroesop hageal reflux disease 756135283 K21.9 otc Depressive disorder 3548 9007 F32.9 under control Unsteady when walking 22 955352 R26.89 has made significan t improvemen t with therapy Adult [facility] examination 769247771 Z00.00 Z13.220 Colonoscop y-03/04/20 21Mammogra m- 02/24/2023 - States he had it @ [facility] 04/05/2024 exa - 10/01Pneum onia vaccs- NEVER, does not wantFLU- Does not takeCOVID- 12/05/2020 , 01/02/2021 , 2022 [id number] Chris Mendoza MD [facility] Internal Med [facility] [address] [facility] [place] [address] 09/14/2024 11:12:28 09/14/2024 12:10:17 Hyperthyroidism 74625780 E05.90 labs next time Steatotic liver disease 716314104 K76.0 improved Kidney disease 76747450 N08 GFR 38 Essential hypertension 97899704 I10 under control Hyperlipidemia 34554572 E78.5 under control Irritable bowel syndrome 62115480 K58.9 meds help Gastroesop hageal reflux disease 896195377 K21.9 otc Depressive disorder 3548 9007 F32.9 under control Unsteady when walking 22 062484 R26.89 improved Adult [facility] examination 773280388 Z00.00 Z13.220 Colonoscop y-03/04/20 21Mammogra m- 04/05/2024 exa - 10/01Pneum onia vaccs- NEVER, does not wantFLU- Does not takeCOVID- 12/05/2020 , 01/02/2021 , 2022, 2023 [id number] Chris Mendoza MD [facility] Med [facility] [address] [facility] [place] [address] 02/01/2025 08:55:52 02/01/2025 10:03:46 Hyperthyroidism 07718268 E05.90 under control Steatotic liver disease 701734797 K76.0 improved, keep watching diet Kidney disease 72976079 N08 GFR low but stable Essential hypertension 51555176 I10 under control Hyperlipidemia 87388004 E78.5 under control Irritable bowel syndrome 64894671 K58.9 meds help Gastroesop hageal reflux disease 541038665 K21.9 otc Depressive disorder 3548 9007 F32.9 under control Unsteady when walking 22 256269 R26.89 improved in the past Adult heal th examination 983179125 Z00.00 Z13.220 Colonoscop y-03/04/20 21Mammogra m- 04/05/2024 exa - 10/01Pneum onia vaccs- NEVER, does not wantFLU- Does not takeCOVID- 12/05/2020 , 01/02/2021 , 2022, 2023 Health Concerns Section Related Observation LastModified by Organization Detai ls LastModified Time None Recorded Concern Status LastModified by Organization Details LastModified Time None Recorded Advance Directives Directive N: Payers Insurance Date Sequence Insurance Name Policy Number Policy Jaime Covered Member ID Jaime Member ID Guarantor Name 01/29/2025 1 [place] Patti Mas [id number] 01/29/2025 2 () Patti Mas [id number] Notes Date Note Type Note Provider Name and Address Organization Details Recorded Time 10/21/2023 text/html Pt is here for 3 month f/u. Hyperthyroidism, started on meds, feeling better, less palpitations, not feeling weak any more, neck US was nl Fatty liver- hep screen neg, CT abd showed fatty liver, LFT have improved Kidney disease- GFR has improved from 34 to 54, now 45seeing nephrology Hyperlipidemia- on meds. under control , labs good 11/04Meds- Atorvastatin 10 mg daily,Hypertension - controlled with meds. In the past lisinopril caused cough,Meds- Amlodipine 10 mg daily, Losartan 25 mg qd GERD- was on omeprazole, OTC as needed Depression/ anxiety - her in 01/27, daughter from cancer, sleeps fineMeds- Escitalopram 10 mg dailySpastic Colon- stable with meds, BM is nl, colonoscopy 03/01, 2 polyps removedMeds- Dicyclomine 10 mg TID helpsShe lives alone Chris Mendoza MD [address] [facility] [facility] [address], [place], [address], [facility] [employer] 10/21/2023 10:20:17 02/18/2024 text/html Pt is here for 4 month f/u. Hyperthyroidism, started on meds, feeling better, less palpitations, not feeling weak any more, neck US was nlTSH was little low recentlyMeds- Methimazole 10mg daily Fatty liver- hep screen neg, CT abd showed fatty liver, LFT have improved Kidney disease- GFR has improved from 34 to 54, now 41, seeing nephrologyMeds- Vitamin D 50,000 once a month Hyperlipidemia- on meds. under control , labs good 11/04Meds- Atorvastatin 10 mg daily,Hypertension - controlled with meds. In the past lisinopril caused cough,Meds- Amlodipine 10 mg daily, Losartan 25 mg qd GERD- was on omeprazole, OTC as needed Depression/ anxiety - her in 01/27, daughter from cancer, sleeps fineMeds- Escitalopram 10 mg dailySpastic Colon- stable with meds, BM is nl, colonoscopy 03/01, 2 polyps removedMeds- Dicyclomine 10 mg TID helpsShe lives alone Chris Mendoza MD [address] [facility] [facility] [address], [place], [address], [facility] [employer] [facility] [employer] 02/18/2024 13:02:18 06/22/2024 text/html Pt is here for 4 month f/u. Hyperthyroidism- no palpitations, not feeling weak any more, neck US was nlTSH was little low, just had another labs at nephrologyMeds- Methimazole 10mg daily Fatty liver- hep screen neg, CT abd showed fatty liver, LFT have improved Kidney disease- GFR has improved from 34 to 54, now 41, seeing nephrologyMeds- Vitamin D 50,000 once a month Hyperlipidemia- on meds. under control , labs good 11/04, watching dietMeds- Atorvastatin 10 mg daily,Hypertension - controlled with meds. In the past lisinopril caused cough,Meds- Amlodipine 10 mg daily, Losartan 25 mg qd GERD- was on omeprazole, OTC as needed Depression/ anxiety - her in 01/27, daughter from cancer, sleeps fineMeds- Escitalopram 10 mg dailySpastic Colon- stable with meds, BM is nl, colonoscopy 03/01, 2 polyps removedMeds- Dicyclomine 10 mg TID helpsShe lives alone Chris Mendoza MD [address], [place], [address], [employer] 06/22/2024 12:12:25 09/14/2024 text/html Pt is here for 4 month f/u.PT IS NOT FASTING ( Medicare/[employer]) Hyperthyroidism- no palpitations, not feeling weak any more, neck US was nlMeds- Methimazole 10mg daily Fatty liver- hep screen neg, CT abd showed fatty liver, LFT have improved Kidney disease- GFR has improved from 34 to 54, now 38, seeing nephrologyMeds- Vitamin D 50,000 once a month Hyperlipidemia- on meds. under control , labs good 11/04, watching dietMeds- Atorvastatin 10 mg daily,Hypertension - controlled with meds. In the past lisinopril caused cough,Meds- Amlodipine 10 mg daily, Losartan 25 mg qd GERD- was on omeprazole, OTC as needed Depression/ anxiety - her in 01/27, daughter from cancer, sleeps fineMeds- Escitalopram 10 mg dailySpastic Colon- stable with meds, BM is nl, colonoscopy 03/01, 2 polyps removedMeds- Dicyclomine 10 mg TID helpsShe lives alone Chris Mendoza MD [address], [place], [address], [employer] 09/14/2024 12:09:05 02/01/2025 text/html Pt is here for 4 month f/u.PT IS NOT FASTING ( [employer]) Hyperthyroidism- no palpitations, not feeling weak any more, neck US was nl. labs good 02/03Meds- Methimazole 10mg daily Fatty liver- hep screen neg, CT abd showed fatty liver, LFT have improved Kidney disease- GFR has improved from 34 to 54, now 37, seeing nephrologyMeds- Vitamin D 50,000 once a month Hyperlipidemia- on meds. under control , labs good 02/03, watching dietMeds- Atorvastatin 10 mg daily,Hypertension - controlled with meds. In the past lisinopril caused cough,Meds- Amlodipine 10 mg daily, Losartan 25 mg qd GERD- was on omeprazole, OTC as needed Depression/ anxiety - her in 01/27, daughter from cancer, symptoms are under controlMeds- Escitalopram 10 mg dailySpastic Colon- stable with meds, BM is nl, colonoscopy 03/01, 2 polyps removedMeds- Dicyclomine 10 mg TID helpsShe lives alone Chris Mendoza MD [address] [facility] [facility] [address], [place], [address], [place] [facility] 02/01/2025 09:27:06 OBGyn Episode No OBEpisode recorded.
--- OUTSIDE RECORDS SUMMARY | 2025-04-10 13:37 | XMS_ITS ---
Author Organization [facility] Address [address] [facility] [address] [facility] [address] [place] [address] Care Team Providers Care Core Analysis Operator Name Role Phone José Riley Unavailable [phone] Encounters Encounter Location Date Provider Diagnosis [place] [facility] [address] [facility] [address] [place] [address] 03/31/2025 José Riley Chronic kidney disea se, stage 3a N18.31 ; Essential (primary) hypertension I10 ; Renal osteodystrophy N25.0 ; Secondary hyperparathyroidism, not elsewhere classified E21.1 ; Cyst of kidney, acquired N28.1 ; Fatty (change of) liver, not elsewhere classified K76.0 ; Proteinuria, unspecified R80.9 ; 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 ; Hypothyroidism, unspecified E03.9 and Anemia, unspecified D64.9 Assessments Encounter Date Diagnosis (ICD Code) Assessment Notes Treatment Notes Treatment Clinical Notes Section Notes 03/31/2025 Chronic kidney disease, stage 3a (ICD-10 - N18.31) 03/31/2025 Essential (primary) hypertension (ICD-10 - I10) uncontrolled 03/31/2025 Renal osteodystrophy (ICD-10 - N25.0) 03/31/2025 Secondary hyperparathyroidis m, not elsewhere classified (ICD-10 - E21.1) 03/31/2025 Cyst of kidney, acquired (ICD-10 - N28.1) 03/31/2025 Fatty (change of) liver, not elsewhere classified (ICD-10 - K76.0) 03/31/2025 Proteinuria, unspecified (ICD-10 - R80.9) 03/31/2025 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 :1945 A ge:79 Y S ex:Female Date:03/31/2025 Address:[address] [place] [address] Subjective: * Chief Complaints: * * Medical History: Objective: * Vitals: Assessment: * Assessment: 1. C hronic kidney disease, stage 3a - N18.31 (Primary) 2 . E ssential (primary) hypertension - I10 N otes :uncontrolled 3 . R enal osteodystrophy - N25.0 4 . S econdary hyperparathyroidism, not elsewhere classified - E21.1 5 . C yst of kidney, acquired - N28.1 6 . F atty (change of) liver, not elsewhere classified - K76.0 ?7. P roteinuria, unspecified - R80.9 8 . N ephrogenic diabetes insipidus - N25.1 9 . H ypothyroidism, unspecified - E03.9 1 0. A nemia, unspecified - D64.9 Plan: * Treatment: * Billing Information: * Visit Code: 72940 Office Visit, Est Pt., Level 4. * Procedure Codes: * Electronic signature of Thea Riley MD on 04/10/2025 at 01:37 PM CDT Sign off status: Pending * Provider: Desiree MCCRAY MD, F.A.C.P, F.A.S.N. Date: 03/31/2025 Generated for Printing/Faxing/eTransmitting on: 04/10/2025 01:37 PM CDT
--- OUTSIDE RECORDS SUMMARY | 2025-04-10 13:38 | XMS_ITS ---
Author Organization [facility] Address [address] [place] [address] Care Team Providers Care Frame Hand Name Role Phone José Riley Unavailable [phone] Medications Medication SIG (Take, Route, Frequency, Duration) Notes Start Date End Date Status Losartan Potassium 25 MG 1 tablet Orally Once a day; Duration: 90 day(s) 12/09/2021 Active Ergocalciferol 1.25 MG (96094 UT) 1 capsule Orally once a month; Duration: 30 days 01/31/2025 03/02/2025 Active Losartan Potassium 25 MG 1 tablet Orally Once a day; Duration: 90 day(s) 05/29/2023 Active Encounters Encounter Location Date Provider Diagnosis [facility] [address] [facility] [address] [place] [address] 02/17/2025 José Riley Chronic kidney disea se, [...] on diagnostic imaging of unspecified kidney R93.429 Assessments Encounter Date Diagnosis (ICD Code) Assessment Notes Treatment Notes Treatment Clinical Notes Section Notes 02/17/2025 Chronic kidney disease, stage 3a (ICD-10 - N18.31) 02/17/2025 Essential (primary) hypertension (ICD-10 - I10) uncontrolled 02/17/2025 Renal osteodystrophy (ICD-10 - N25.0) 02/17/2025 Secondary hyperparathyroidis m, not elsewhere classified (ICD-10 - E21.1) 02/17/2025 Cyst of kidney, acquired (ICD-10 - N28.1) 02/17/2025 Chronic kidney disease, stage 3 unspecified (ICD-10 - N18.30) 02/17/2025 Fatty (change of) liver, not elsewhere classified (ICD-10 - K76.0) 02/17/2025 Proteinuria, unspecified (ICD-10 - R80.9) 02/17/2025 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 :1945 A ge:79 Y S ex:Female Date:02/17/2025 Address:[address] [place], [place] [id number] Subjective: * Chief Complaints: * * Medical History: * Medications: T aking Losartan Potassium 25 MG Tablet 1 tablet Orally Once a day , Taking Losartan Potassium 25 MG Tablet 1 tablet Orally Once a day , Taking Ergocalciferol 1.25 MG (06227 UT) Capsule 1 capsule Orally once a month , stop date 03/02/2025 Objective: * Vitals: Assessment: * Assessment: 1. C hronic kidney disease, stage 3a - N18.31 (Primary) 2 . E ssential (primary) hypertension - I10 N otes :uncontrolled 3 . R enal osteodystrophy - N25.0 4 . S econdary hyperparathyroidism, not elsewhere classified - E21.1 5 . C yst of kidney, acquired - N28.1 6 . C hronic kidney disease, stage 3 unspecified - N18.30 7 .?Fatty (change of) liver, not elsewhere classified - K76.0 8 . P roteinuria, unspecified - R80.9 9 . N ephrogenic diabetes insipidus - N25.1 ?10. H ypothyroidism, unspecified - E03.9 1 1. A nemia, unspecified - D64.9 1 2. A bnormal radiologic findings on diagnostic imaging of unspecified kidney - R93.429 Plan: * Treatment: * Billing Information: * Visit Code: 75076 Office Visit, Est Pt., Level 4. * Procedure Codes: * Electronic signature of Thea Riley MD on 04/10/2025 at 01:37 PM CDT Sign off status: Pending * Provider: Desiree MCCRAY MD, F.A.C.P, F.A.S.N. Date: 0 02/17/2025 Generated for Printing/Faxing/eTransmitting on: 0 04/10/2025 01:37 PM CDT
== END 2025-04-10 13:13 | disposition home or self-care (01) ==
PROVIDERS: PCP Internal Medicine; Visit Provider Internal Medicine
DX: Z12.31 Encounter for screening mammogram for malignant neoplasm of breast (principal); M85.89 Other specified disorders of bone density and structure, multiple sites; Z78.0 Asymptomatic menopausal state; Z13.820 Encounter for screening for osteoporosis
CPT/HCPCS: 77063; 77067; 77080